=== PATIENT | male | born 1965 | race Two or more races ===

== ENCOUNTER 2021-08-02 14:37 | Emergency (ER) | payer SELFPAY ==
[~2021-08-02] VITALS: Ht 165.1 cm; Wt 72.6 kg
[2021-08-02] MEDS ORDERED: ONDANSETRON HCL 4 MG/2 ML VIAL BC ONE (15:45)
[2021-08-02] MEDS ORDERED: SODIUM CHLORIDE 0.9% 1,000 ML IV ONE (15:45)
[2021-08-02 16:16] LABS: Basophils # (auto) 0.1 10 ^3/uL (0-0.2); Basophils % (auto) 0.5 % (0.0-2.0); Eosinophils # (auto) 0.1 10 ^3/uL (0-0.8); Eosinophils % (auto) 0.7 % (0.0-7.0); Hematocrit 44.3 % (41.0-53.0); Hemoglobin 15.1 g/dL (13.5-17.5); Lymphocytes # (auto) 1.4 10 ^3/uL (0.4-5.4); Lymphocytes % (auto) 11.1 % (10.0-50.0); Mean Corpuscular Hemoglobin 29.2 pg (28.0-32.0); Mean Corpuscular Volume 85.8 fL (80.0-100.0); Monocytes # (auto) 0.6 10 ^3/uL (0-1.3); Monocytes % (auto) 5.1 % (0.0-12.0); Neutrophils # (auto) 10.4 10 ^3/uL (1.6-8.6); Neutrophils % (auto) 82.6 % (37.0-80.0); Red Blood Cells 5.16 10^6/uL (4.5-5.90); Red Cell Distribution Width 13.5 % (11.8-14.3); White Blood Cell 12.5 10^3/uL (4.4-10.8)
[2021-08-02] MEDS ORDERED: fentaNYL CITRATE 100 MCG/2 ML VL IV ONE ×2 (16:30→17:45)
[2021-08-02 16:33] LABS: BUN/Creatinine Ratio 14.3; Calcium 8.7 mg/dL (8.5-10.1); Potassium 4.3 mmol/L (3.5-5.1)
[2021-08-02 16:36] LABS: Bilirubin, Total 0.4 mg/dL (0.2-1.0); Total Protein 7.1 g/dL (6.4-8.2)
[2021-08-02] MEDS ORDERED: KETOROLAC TROMETH 30 MG/ML 1ML VIAL IV ONE (18:00)
[2021-08-02 19:18] LABS: Urine Bacteria NONE SEEN /hpf (None Seen); Urine Blood 2+ /uL (Negative); Urine Mucus MODERATE (None Seen); Urine WBC 3 /hpf (0 - 3)
[2021-08-02] MEDS ORDERED: HYDROcodone-ACET 10/325MG TAB PO ONE (20:15)
[2021-08-02] MEDS ORDERED: HYDR-4902 PO (21:23)
[2021-08-02] MEDS ORDERED: ONDA-144 PO (21:23)
[2021-08-02 21:30] VITALS: BP 118/76
== END 2021-08-02 21:39 | disposition home or self-care (01) ==
LOC: ER 14:37
DX: R10.9 Unspecified abdominal pain (principal); R11.0 Nausea
CPT/HCPCS: 36415; 74176; 80053; 81001; 85025; 93005; 96361; 96374; 96375; 99285; J1885; J2405; J3010; J7040

== ENCOUNTER 2023-05-03 18:01 | Emergency (ER) | payer OTHER ==
[~2023-05-03] VITALS: Ht 167.6 cm; Wt 73.0 kg
[~2023-05-03 18:01] MED LIST: HYDR-4902 PO; ONDA-144 PO
[2023-05-03] MEDS ORDERED: HYDROcodone-ACET 10/325MG TAB PO ONE (19:45)
[2023-05-03 23:30] VITALS: BP 129/77; PULSE 84; RESP 18; TEMP 98.2; O2SAT 96
== END 2023-05-03 23:35 | disposition home or self-care (01) ==
LOC: ER 18:01
DX: S92.001A Unspecified fracture of right calcaneus, initial encounter for closed fracture (principal); R20.2 Paresthesia of skin; Z98.890 Other specified postprocedural states; Z88.8 Allergy status to other drugs, medicaments and biological substances; Z79.899 Other long term (current) drug therapy; W10.8XXA Fall (on) (from) other stairs and steps, initial encounter; Y93.89 Activity, other specified; Y92.89 Other specified places as the place of occurrence of the external cause; Y99.8 Other external cause status
CPT/HCPCS: 73630; 93971

== ENCOUNTER 2023-05-28 10:39 | Emergency (ER) | payer OTHER ==
[~2023-05-28] VITALS: Ht 165.1 cm; Wt 77.2 kg
[2023-05-28] MEDS ORDERED: KETOROLAC TROMETH 30 MG/ML 1ML VIAL IV ONE (11:00)
[2023-05-28 11:11] LABS: Basophils # (auto) 0.1 10 ^3/uL (0-0.2); Basophils % (auto) 0.4 % (0.0-2.0); Eosinophils # (auto) 0.1 10 ^3/uL (0-0.8); Eosinophils % (auto) 0.7 % (0.0-7.0); Hematocrit 49.5 % (41.0-53.0); Hemoglobin 16.4 g/dL (13.5-17.5); Lymphocytes # (auto) 1.9 10 ^3/uL (0.4-5.4); Lymphocytes % (auto) 13.1 % (10.0-50.0); Mean Corpuscular Hemoglobin 28.9 pg (28.0-32.0); Mean Corpuscular Hgb Conc. 33.2 g/dL (32.0-36.0); Mean Corpuscular Volume 87.1 fL (80.0-100.0); Monocytes # (auto) 0.8 10 ^3/uL (0-1.3); Monocytes % (auto) 5.5 % (0.0-12.0); Neutrophils # (auto) 11.6 10 ^3/uL (1.6-8.6); Neutrophils % (auto) 80.3 % (37.0-80.0); Red Blood Cells 5.68 10^6/uL (4.5-5.90); Red Cell Distribution Width 13.4 % (11.8-14.3); White Blood Cell 14.4 10^3/uL (4.4-10.8)
[2023-05-28] MEDS ORDERED: SODIUM CHLORIDE 0.9% 1,000 ML IV ONE (11:30)
[2023-05-28 11:31] LABS: Alanine Aminotransferase 32 U/L (7-40); Albumin 4.8 g/dL (3.2-4.8); Alkaline Phosphatase 89 U/L (46-116); Anion Gap 11 (5-15); Aspartate Aminotransferase 18 U/L (13-40); Blood Urea Nitrogen 12 mg/dL (9-23); Calcium 9.5 mg/dL (8.7-10.4); Carbon Dioxide 21 mmol/L (20-30); Chloride 107 mmol/L (98-107); Glucose 147 mg/dL (74-106); Lipase 34 U/L (12-53); Potassium 4.1 mmol/L (3.5-5.1); Sodium 139 mmol/L (136-145)
[2023-05-28 11:32] LABS: Bilirubin, Total 0.6 mg/dL (0.2-1.0); Total Protein 7.2 g/dL (5.7-8.2)
[2023-05-28] MEDS ORDERED: TAMSULOSIN HYDROCHLORIDE 0.4 MG CAP PO ONE (12:30)
[2023-05-28] MEDS ORDERED: MELO-335 PO (15:21)
[2023-05-28] MEDS ORDERED: TAMS-35 PO (15:21)
[2023-05-28 15:29] LABS: Urine Bacteria NONE SEEN /hpf (None Seen); Urine Blood 2+ /uL (Negative); Urine Clarity Clear (Clear); Urine Color Yellow (Yellow); Urine Mucus FEW (None Seen); Urine Protein, UAD 1+ (Negative); Urine Specific Gravity 1.036 (1.001-1.035); Urine Urobilinogen Normal (Negative); Urine WBC 2 /hpf (0 - 3); Urine pH 5.5 (5.0-8.0)
[2023-05-28 16:08] VITALS: BP 132/86; PULSE 68; RESP 16; TEMP 98.7; O2SAT 98
== END 2023-05-28 16:10 | disposition home or self-care (01) ==
LOC: ER 10:39 → EDBD 10:39 → ER 16:10
DX: N20.1 Calculus of ureter (principal); I10 Essential (primary) hypertension
CPT/HCPCS: 36415; 74176; 80053; 81001; 83690; 84484; 85025; 93005; 96361; 96374; 99285; J1885; J7030